=== PATIENT | female | born 1970 | race Caucasian/White ===

== ENCOUNTER 2025-05-27 09:44 | Outpatient (OUT) | payer BC, SELFPAY ==
--- NOTE | 2025-05-27 | XR_ITS ---
The [address] [address] Patient Name: HUNG HUDSON MRN: [id number] date: 1970 Sex: F Assigned Patient Location: [facility] Current Patient Location: [facility] Accession/Order Number: [id number] Exam Date: 05/27/2025 10:00 Report Date: 05/27/2025 10:51 At the request of: ASHLYN CODY DO Procedure: XR ankle RT min 3V RIGHT ANKLE - 3 views COMPARISON: None CLINICAL DATA: Follow-up distal fibular fracture AP, lateral and oblique views were obtained. There is a transverse, minimally displaced fracture at the lateral malleolus. There is no obvious callus formation. There are no priors to assess for interval change. There is no additional fractures or dislocation. The talar dome is intact. Mild diffuse soft tissue swelling is seen. XR/XR ankle RT min 3V IMPRESSION: MILDLY DISPLACED LATERAL MALLEOLAR FRACTURE. THERE ARE NO PRIORS TO ASSESS STABILITY. Impression dictated by: Jessica Cottrell M.D. 05/27/2025 10:51 AM Dictation Location: [place] [address] Electronically authenticated by: [id number] Y Date: 05/27/2025 10:51
== END 2025-05-27 09:45 | disposition home or self-care (01) ==
LOC: RAD 09:44
PROVIDERS: Family Provider Hospitalist; PCP Family Medicine; Visit Provider Orthopaedic Surgery Orthopaedic Trauma
DX: S82.831A Other fracture of upper and lower end of right fibula, initial encounter for closed fracture (principal)
CPT/HCPCS: 73610